=== PATIENT | male | born 1990 | race Caucasian/White ===

== ENCOUNTER 2017-03-11 15:13 | Emergency (ER) | payer MEDICAID ==
[2017-03-11 15:42] VITALS: BMI 33.2
[2017-03-11 15:46] VITALS: BP 136/84; RESP 20; TEMP 97.6
--- NOTE | 2017-03-11 15:55 | ED PDOC ---
Arrival/HPI - General Time Seen by Provider: 03/11/17 15:45 Historian: Patient - History of Present Illness Narrative History of Present Illness (Text): 03/11/17 15:56 26yr old male with hx of smoking presents today with 2 week history of cough with yellow sputum. c/o nasal congestion. no cp or sob. states he has had hoarse voice for over a year and has f/u with specialist and had scope. pt denies fever/chills. denies sick contacts. pt denies sore throat. denies ear pain. no vomiting/diarrhea. no abdominal pain. c/o rib pain with cough. no headache or dizziness. no other complaints. Time/Duration: > week (2 weeks) Symptom Onset: Gradual Past Medical History - Provider Review Nursing Documentation Reviewed: Yes - Travel History Have you recently traveled outside [place] w/in the past 3 mons?: No - Infectious Disease Hx of Infectious Diseases: None - Tetanus Immunization Tetanus Immunization: Unknown - Neurological Hx Seizures: Yes - Psychiatric Hx Depression: No Hx Emotional Abuse: No Hx Physical Abuse: No Hx Substance Use: No - Suicidal Assessment Feels Threatened In Home Enviroment: No Family/Social History - Physician Review Nursing Documentation Reviewed: Yes Family/Social History: Unknown Family HX Smoking Status: Heavy Smoker > 10 Cigarettes Daily Hx Alcohol Use: No Hx Substance Use: No Hx Substance Use Treatment: No Allergies/Home Meds Allergies/Adverse Reactions: Allergies No Known Allergies Allergy (Verified 06/05/12 17:30) Review of Systems - Review of Systems Constitutional: absent: Fatigue, Fevers ENT: Sinus Congestion. absent: Sore Throat Respiratory: Cough, Sputum. absent: SOB Cardiovascular: absent: Chest Pain, Palpitations Gastrointestinal: absent: Abdominal Pain, Nausea, Vomiting Genitourinary Male: absent: Dysuria Musculoskeletal: absent: Arthralgias Skin: absent: Rash, Pruritis Neurological: absent: Headache, Dizziness Psychiatric: absent: Anxiety, Depression, Suicidal Ideation Physical Exam Vital Signs Reviewed: Yes Vital Signs Temp Pulse Resp BP Pulse Ox 03/11/17 15:42 97.6 F 83 20 136/84 97 Temperature: Afebrile Blood Pressure: Normal Pulse: Regular Respiratory Rate: Normal Appearance: Positive for: Well-Appearing, Non-Toxic, Comfortable Pain Distress: None Mental Status: Positive for: Alert and Oriented X 3 - Systems Exam Head: Present: Atraumatic Conjunctiva: Present: Normal Ears: Present: Normal, NORMAL TM Mouth: Present: Moist Mucous Membranes Pharnyx: Present: Normal, Other (hoarse voice (chronic per patient)). No: ERYTHEMA, EXUDATE, TONSILS ENLARGED, Peritonsilar Swelling, Uvular Deviation Nose (External): Present: Atraumatic Nose (Internal): Present: Normal Inspection Neck: Present: Normal Range of Motion, Trachea Midline. No: Lymphadenopathy Respiratory/Chest: Present: Clear to Auscultation, Good Air Exchange. No: Respiratory Distress, Accessory Muscle Use, Wheezes, Decreased Breath Sounds, Retracting, Rhonchi, Tachypneic Cardiovascular: Present: Regular Rate and Rhythm Abdomen: No: Tenderness, Distention, Rebound, Guarding Back: Present: Normal Inspection Neurological: Present: GCS=15, Speech Normal Skin: Present: Warm, Dry Psychiatric: Present: Alert, Oriented x 3 Medical Decision Making ED Course and Treatment: 03/11/17 15:59 Patient is nontoxic well-appearing in no distress. Vital signs are stable. cxr; FINDINGS: LUNGS: No active pulmonary disease. PLEURA: No significant pleural effusion identified. No pneumothorax apparent. CARDIOVASCULAR: Normal. OSSEOUS STRUCTURES: No significant abnormalities. VISUALIZED UPPER ABDOMEN: Normal. OTHER FINDINGS: None. IMPRESSION: No active disease. Zithromax pt reassessment; pt non toxic well appearing; no distress. stable vitals. I advised follow up with primary care physician within the next 2 days. I advised increase fluids and return if symptoms worsen persist or if new symptoms develop. IMPRESSION; cough Motrin one tablet every 6 hours as needed for pain Zithromax one tablet once daily x4 days FLonase; 2 sprays each nostril once daily. Increase fluids Followup with primary care physician the next 2 days Follow up with the ENT specialist within the next 2 days. Return if symptoms worsen persist or if new symptoms develop - RAD Interpretation Radiology Orders: 03/11/17 15:55 CHEST TWO VIEWS (PA/LAT) [RAD] Stat Disposition/Present on Arrival - Present on Arrival Any Indicators Present on Arrival: No History of DVT/PE: No History of Uncontrolled Diabetes: No Urinary Catheter: No History of Decub. Ulcer: No History Surgical Site Infection Following: None - Disposition Have Diagnosis and Disposition been Completed?: Yes Diagnosis: Cough, Nasal congestion Disposition: HOME/ ROUTINE Disposition Time: 16:31 Patient Plan: Discharge Patient Problems: Current Active Problems Problem Status Onset Cough Acute Nasal congestion Acute Condition: GOOD Discharge Instructions (ExitCare): Acute Cough (ED) Additional Instructions: Motrin every 6 hours as needed for pain Zithromax one tablet once daily x4 days FLonase; 2 sprays each nostril once daily. Increase fluids Followup with primary care physician the next 2 days Follow up with the ENT specialist within the next 2 days. Return if symptoms worsen persist or if new symptoms develop Prescriptions: Azithromycin [Zithromax] 250 mg PO DAILY #4 tab Fluticasone Nasal [Flonase] 2 spr NS DAILY #1 spr Referrals: Navarro Groves MD [Primary Care Provider] - Follow up with primary Fahad Brady DO [Staff Provider] - Follow up with primary Forms: WORK NOTE
--- NOTE | 2017-03-11 16:22 | RAD ---
HISTORY: cough x 2 weeks COMPARISON: No prior. TECHNIQUE: Chest PA and lateral FINDINGS: LUNGS: No active pulmonary disease. PLEURA: No significant pleural effusion identified. No pneumothorax apparent. CARDIOVASCULAR: Normal. OSSEOUS STRUCTURES: No significant abnormalities. VISUALIZED UPPER ABDOMEN: Normal. OTHER FINDINGS: None. IMPRESSION: No active disease.
[2017-03-11 16:31] VITALS: PULSE 80; O2SAT 100
== END 2017-03-11 16:47 | disposition home or self-care (01) ==
LOC: ED 15:13
DX: R05 Cough (principal); R09.81 Nasal congestion

== ENCOUNTER 2017-05-06 16:52 | Emergency (ER) | payer MEDICAID ==
[2017-05-06 16:53] VITALS: BMI 33.2
[2017-05-06] MEDS ORDERED: Ciprofloxacin/Dexamethasone OTIC SUSP AD STA (17:19)
--- NOTE | 2017-05-06 17:50 | ED PDOC ---
Arrival/HPI - General Time Seen by Provider: 05/06/17 17:19 Historian: Patient - History of Present Illness Narrative History of Present Illness (Text): 05/06/17 17:47 26yo male with no PMhx present with 2weeks history of left ear pain. States pain started after cleaning his ear two weeks ago. He did not take any medication for the pain. Denies drainage from the ear, hearing loss, any other complaint. Past Medical History - Provider Review Nursing Documentation Reviewed: Yes - Infectious Disease Hx of Infectious Diseases: None - Tetanus Immunization Tetanus Immunization: Unknown - Neurological Hx Seizures: Yes - Psychiatric Hx Depression: No Hx Emotional Abuse: No Hx Physical Abuse: No Hx Substance Use: No - Anesthesia Hx Anesthesia: No Hx Anesthesia Reactions: No Hx Malignant Hyperthermia: No - Suicidal Assessment Feels Threatened In Home Enviroment: No Family/Social History - Physician Review Nursing Documentation Reviewed: Yes Family/Social History: Unknown Family HX Smoking Status: Heavy Smoker > 10 Cigarettes Daily Hx Alcohol Use: No Hx Substance Use: No Hx Substance Use Treatment: No Allergies/Home Meds Allergies/Adverse Reactions: Allergies No Known Allergies Allergy (Verified 06/05/12 17:30) Review of Systems - Physician Review All systems were reviewed & negative as marked: Yes - Review of Systems Constitutional: Normal Eyes: Normal ENT: Other (LEft ear pain) Respiratory: Normal Cardiovascular: Normal Gastrointestinal: Normal Genitourinary Male: Normal Musculoskeletal: Normal Skin: Normal Neurological: Normal Endocrine: Normal Hemo/Lymphatic: Normal Psychiatric: Normal Physical Exam Vital Signs Reviewed: Yes Temperature: Afebrile Blood Pressure: Normal Pulse: Regular Respiratory Rate: Normal Appearance: Positive for: Well-Appearing, Non-Toxic, Comfortable Pain Distress: None Mental Status: Positive for: Alert and Oriented X 3 - Systems Exam Head: Present: Atraumatic, Normocephalic Pupils: Present: PERRL Extroacular Muscles: Present: EOMI Conjunctiva: Present: Normal Ears: Present: NORMAL TM, Normal Canal, Other (Tenderness posterior to left ear and pain with manipulation of left pinna). No: Erythema, TM Bulging, Fluid, TM Perf Mouth: Present: Moist Mucous Membranes Neck: Present: Normal Range of Motion Respiratory/Chest: Present: Clear to Auscultation, Good Air Exchange. No: Respiratory Distress, Accessory Muscle Use Cardiovascular: Present: Regular Rate and Rhythm, Normal S1, S2. No: Murmurs Abdomen: Present: Normal Bowel Sounds. No: Tenderness, Distention, Peritoneal Signs Back: Present: Normal Inspection Upper Extremity: Present: Normal Inspection. No: Cyanosis, Edema Lower Extremity: Present: Normal Inspection. No: Edema Neurological: Present: GCS=15, CN II-XII Intact, Speech Normal Skin: Present: Warm, Dry, Normal Color. No: Rashes Psychiatric: Present: Alert, Oriented x 3, Normal Insight, Normal Concentration Medical Decision Making - Medication Orders Current Medication Orders: Discontinued Medications Ciprofloxacin/Dexamethasone (Ciprodex Otic) 4 drop AD ONCE STA Stop: 05/06/17 17:20 Ibuprofen (Motrin Tab) 600 mg PO STAT STA Stop: 05/06/17 17:21 Disposition/Present on Arrival - Present on Arrival Any Indicators Present on Arrival: No History of DVT/PE: No History of Uncontrolled Diabetes: No Urinary Catheter: No History Surgical Site Infection Following: None - Disposition Have Diagnosis and Disposition been Completed?: Yes Diagnosis: Acute otitis externa Disposition: HOME/ ROUTINE Disposition Time: 17:55 Patient Plan: Discharge Condition: STABLE Discharge Instructions (ExitCare): Otitis Externa (ED) Additional Instructions: Follow up with your doctor/ENT Return to ED for any new or worsening symptoms Prescriptions: Ciprofloxacin/Dexamethasone [Ciprodex 0.3%-0.1% 7.5 Ml] 7.5 ml OT BID #1 bottle Ibuprofen [Motrin Tab] 600 mg PO Q6 #20 tab Referrals: Mati Lopez DO [[facility]] - Follow up with primary
== END 2017-05-06 18:15 | disposition home or self-care (01) ==
LOC: ED 16:52
DX: H60.92 Unspecified otitis externa, left ear (principal)

== ENCOUNTER 2018-07-21 11:55 | Emergency (ER) | payer SELFPAY ==
[2018-07-21 11:55] VITALS: BMI 33.2
[2018-07-21 12:05] VITALS: RESP 18; O2SAT 99
--- NOTE | 2018-07-21 12:58 | ED PDOC ---
Arrival/HPI - General Historian: Patient - History of Present Illness Narrative History of Present Illness (Text): 07/21/18 12:32 27-year-old male presents today with a one-week history of left lower back pain radiating into the buttocks and left leg. 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 Patient states the pain is sharp and achy located in the left lower back and radiates into the left leg. Patient denies numbness weakness or tingling in the extremity. He denies saddle paresthesias. He denies bladder or bowel incontinence. No abdominal pain. No nausea vomiting diarrhea or constipation. No chest pain or shortness of breath. Patient states he is been taking Motrin and Tylenol without improvement in his symptoms. Patient states symptoms worsen when standing for long period of time or lifting his leg. <Araceli Mantilla - Last Filed: 07/21/18 16:57> <Bubba Benoit - Last Filed: 07/21/18 17:01> - General Chief Complaint: Back Pain Time Seen by Provider: 07/21/18 12:10 Past Medical History - Provider Review Nursing Documentation Reviewed: Yes - Travel History Have you recently traveled outside [place] w/in the past 3 mons?: No - Infectious Disease Hx of Infectious Diseases: None - Tetanus Immunization Tetanus Immunization: Unknown - Neurological Hx Seizures: Yes - Psychiatric Hx Depression: No Hx Emotional Abuse: No Hx Physical Abuse: No Hx Substance Use: No - Anesthesia Hx Anesthesia: No Hx Anesthesia Reactions: No Hx Malignant Hyperthermia: No - Suicidal Assessment Feels Threatened In Home Enviroment: No <Araceli Mantilla - Last Filed: 07/21/18 16:57> Family/Social History - Physician Review Nursing Documentation Reviewed: Yes Family/Social History: Unknown Family HX Smoking Status: Heavy Smoker > 10 Cigarettes Daily Hx Alcohol Use: No Hx Substance Use: No Hx Substance Use Treatment: No <Araceli Mantilla - Last Filed: 07/21/18 16:57> Allergies/Home Meds <Araceli Mantilla - Last Filed: 07/21/18 16:57> <Bubba Benoit - Last Filed: 07/21/18 17:01> Allergies/Adverse Reactions: Allergies No Known Allergies Allergy (Verified 05/06/17 17:55) Review of Systems - Review of Systems Constitutional: absent: Fatigue, Fevers Respiratory: absent: SOB, Cough Cardiovascular: absent: Chest Pain, Palpitations Gastrointestinal: absent: Abdominal Pain, Nausea, Vomiting Musculoskeletal: Arthralgias, Back Pain. absent: Neck Pain Skin: absent: Rash, Pruritis Neurological: absent: Headache, Dizziness Psychiatric: absent: Anxiety, Depression <Araceli Mantilla T - Last Filed: 07/21/18 16:57> Physical Exam Vital Signs Reviewed: Yes Vital Signs Temp Pulse Resp BP Pulse Ox 07/21/18 12:03 97.7 F 88 18 121/67 99 07/21/18 11:55 97.7 F 88 18 121/67 99 Temperature: Afebrile Blood Pressure: Normal Pulse: Regular Respiratory Rate: Normal Appearance: Positive for: Well-Appearing, Non-Toxic, Comfortable Pain Distress: None Mental Status: Positive for: Alert and Oriented X 3 - Systems Exam Head: Present: Atraumatic Neck: Present: Normal Range of Motion Respiratory/Chest: Present: Clear to Auscultation, Good Air Exchange. No: Respiratory Distress, Accessory Muscle Use Cardiovascular: Present: Regular Rate and Rhythm, Normal S1, S2. No: Murmurs Abdomen: No: Tenderness, Distention, Rebound, Guarding Back: Present: Normal Inspection, Paraspinal Tenderness (+ left sided paraspinal tenderness, + left sided sciatic foramen tenderness), Pain with Leg Raise (+ straight leg raise on the left.). No: CVA Tenderness, Midline Tenderness Upper Extremity: Present: Normal Inspection Lower Extremity: Present: Normal Inspection, Normal ROM Neurological: Present: GCS=15, Motor Func Grossly Intact, Normal Sensory Function, Gait Normal Skin: Present: Warm, Dry, Normal Color. No: Rashes Psychiatric: Present: Alert, Oriented x 3 <Araceli Mantilla T - Last Filed: 07/21/18 16:57> Vital Signs Temp Pulse Resp BP Pulse Ox 07/21/18 13:42 97.9 F 75 18 106/69 99 07/21/18 12:03 97.7 F 88 18 121/67 99 07/21/18 11:55 97.7 F 88 18 121/67 99 <Bubba Benoit - Last Filed: 07/21/18 17:01> Medical Decision Making ED Course and Treatment: 07/21/18 13:22 Patient nontoxic well-appearing in no distress with stable vital signs. Toradol, Flexeril, x-ray of the lumbar spine: No fracture Patient reassessment: Feeling better with medications ambulating with a steady gait. Muscle strength 5 out of 5 bilaterally. I advised to followup with the orthopedist/back specialist within the next 2 days. Return if symptoms worsen persist or new symptoms develop. Patient verbalizes understanding of discharge instructions and need for immediate followup. All aspects of this case were discussed the attending of record. Impression: Back pain Motrin every 6 hours as needed for pain Flexeril one tablet every 8 hours as needed for muscle spasms: May cause drowsiness Followup with the orthopedist/back specialist within the next 2 days Followup with primary care physician within the next 2 days Return if symptoms worsen persist or if new symptoms develop Reassessment Condition: Re-examined, Improved - RAD Interpretation Radiology Orders: 07/21/18 12:28 LS SPINE WITH OBL > 18 YRS OLD [RAD] Stat - Medication Orders Current Medication Orders: Discontinued Medications Cyclobenzaprine HCl (Flexeril) 10 mg PO STAT STA Stop: 07/21/18 12:29 Ketorolac Tromethamine (Toradol) 60 mg IM STAT STA Stop: 07/21/18 12:29 <Araceli Mantilla - Last Filed: 07/21/18 16:57> - RAD Interpretation Radiology Orders: 07/21/18 12:28 LS SPINE WITH OBL > 18 YRS OLD [RAD] Stat - Medication Orders Current Medication Orders: Discontinued Medications Cyclobenzaprine HCl (Flexeril) 10 mg PO STAT STA Stop: 07/21/18 12:29 Last Admin: 07/21/18 12:41 Dose: 10 mg Ketorolac Tromethamine (Toradol) 60 mg IM STAT STA Stop: 07/21/18 12:29 Last Admin: 07/21/18 12:41 Dose: 60 mg MAR Pain Assessment Document 07/21/18 12:41 SRE (Rec: 07/21/18 12:42 SRE [id number]) Pain Reassessment Is this a pain reassessment? Yes Sleep Is patient sleeping during reassessment? No Presence of Pain Presence of Pain Yes Pain Scale Used Protocol: PSCALES Pain Scale Used Numeric Location Pain Location Body Site Back Description Description Intermittent IM Administration Charges Document 07/21/18 12:41 SRE (Rec: 07/21/18 12:42 SRE [id number]) Charges for Administration # of IM Administrations 1 <Bubba Benoit - Last Filed: 07/21/18 17:01> - PA / [employer] DR[employer] / Resident Statement / has reviewed & agrees with the documentation as recorded. <Bubba Benoit - Last Filed: 07/21/18 17:01> Disposition/Present on Arrival - Present on Arrival Any Indicators Present on Arrival: No History of DVT/PE: No History of Uncontrolled Diabetes: No Urinary Catheter: No History of Decub. Ulcer: No History Surgical Site Infection Following: None - Disposition Have Diagnosis and Disposition been Completed?: Yes Disposition Time: 13:23 Patient Plan: Discharge <Araceli Mantilla - Last Filed: 07/21/18 16:57> <Bubba Benoit - Last Filed: 07/21/18 17:01> - Disposition Diagnosis: Back pain Disposition: HOME/ ROUTINE Condition: GOOD Discharge Instructions (ExitCare): Low Back Pain (DC) Additional Instructions: Motrin every 6 hours as needed for pain Flexeril one tablet every 8 hours as needed for muscle spasms: May cause drowsiness Followup with the orthopedist/back specialist within the next 2 days Followup with primary care physician within the next 2 days Return if symptoms worsen persist or if new symptoms develop Prescriptions: Cyclobenzaprine [Cyclobenzaprine HCl] 10 mg PO Q8 #10 tab Ibuprofen [Motrin] 600 mg PO Q6H PRN #20 tab PRN Reason: pain/fever reduction Referrals: Ford Kraft MD [Staff Provider] - Follow up with primary Filomena Delarosa MD [Medical Doctor] - Follow up with primary [facility] [Outside] - [facility] with [facility] [Outside] - Follow up with primary [facility] [place] [Outside] - Follow up with primary Manoj Hinds DO [Staff Provider] - Follow up with primary Forms: [facility] (Nepalese), WORK NOTE
--- NOTE | 2018-07-21 13:07 | RAD ---
Date of service: 07/21/2018 PROCEDURE: Radiographs of the Lumbar Spine. HISTORY: back pain COMPARISON: No prior. TECHNIQUE: 5 views obtained. FINDINGS: BONES: Normal alignment. No listhesis. No fracture. DISC SPACES: Unremarkable. OTHER FINDINGS: None. IMPRESSION: Unremarkable radiographs of the lumbar spine.
[2018-07-21 13:43] VITALS: BP 106/69; PULSE 75; TEMP 97.9
== END 2018-07-21 13:43 | disposition home or self-care (01) ==
LOC: ED 11:55
DX: M54.5 Low back pain (principal)
CPT/HCPCS: 72110; 96372; 99283; J1885